=== PATIENT | female | born 1975 | race African-American/Black ===

== ENCOUNTER 2019-05-28 09:59 | Emergency (ER) | payer SELFPAY ==
[~2019-05-28] VITALS: Ht 157.5 cm; Wt 118.0 kg
[2019-05-28] MEDS ORDERED: HYDROCODONE/ACETAMINOPHEN 5/325MG TABLET PO ONE (11:45)
[2019-05-28] MEDS ORDERED: ONDANSETRON 4MG ODT PO ONE (11:45)
[2019-05-28 13:12] VITALS: BP 137/96
== END 2019-05-28 13:14 | disposition home or self-care (01) ==
LOC: ER 12:33
DX: S09.8XXA Other specified injuries of head, initial encounter (principal); S16.1XXA Strain of muscle, fascia and tendon at neck level, initial encounter; W01.198A Fall on same level from slipping, tripping and stumbling with subsequent striking against other object, initial encounter; Y93.9 Activity, unspecified; Y92.9 Unspecified place or not applicable
CPT/HCPCS: 70450; 72125; 99284; Q0162